=== PATIENT | male | born 1995 | race Caucasian/White ===

== ENCOUNTER 2018-03-13 22:24 | Emergency (ER) | END 2018-03-14 02:28 | disposition home or self-care (01) ==

== ENCOUNTER 2019-03-22 13:51 | Emergency (ER) | payer SELFPAY ==
[~2019-03-22] VITALS: Ht 170.2 cm; Wt 116.2 kg
[~2019-03-22 13:51] MED LIST: AZIT500T3 PO; DIC20 PO; IBUP-1542 PO; ONDA4TAB14 PO
[2019-03-22 14:05] VITALS: Ht 170.2 cm; Wt 116.2 kg
[2019-03-22] MEDS ORDERED: ONDANSETRON 4 MG INJ IV STA (14:53)
[2019-03-22] MEDS ORDERED: SODIUM CHLORIDE 0.9% 1L BAG IV* STA (14:53)
[2019-03-22] MEDS ORDERED: IBUPROFEN 600 MG TAB PO ONE (15:00)
[2019-03-22] MEDS ORDERED: CEFTRIAXONE 1 GM/50 ML (PMX) 50 ML IVPB ONE (15:00)
[2019-03-22] MEDS ORDERED: LORAZEPAM 0.5 MG TAB PO ONE (18:00)
[2019-03-22 19:00] VITALS: BP 146/96; PULSE 97; RESP 19
== END 2019-03-22 19:39 | disposition home or self-care (01) ==
LOC: E/R 13:51
DX: R00.2 Palpitations (principal); R00.0 Tachycardia, unspecified; R50.9 Fever, unspecified
CPT/HCPCS: 71045; 74176; 80053; 81003; 83605; 83690; 84439; 84443; 84481; 84484; 85025; 85610; 85730; 87040; 87086; 96374; 96375; 99285; J0696; J2405; J7030; 93005